=== PATIENT | male | born 1980 | race American Indian/Alaskan Native ===

== ENCOUNTER 2016-05-18 14:45 | Emergency (ER) | payer SELFPAY ==
--- NOTE | 2016-05-18 17:40 | Emergency Department Report ---
Chief Complaint: Abdominal Pain Stated Complaint: LOWER ABD PAIN Time Seen by Provider: 05/18/16 17:36 - HPI History of Present Illness: Patient reports LLQ pain that started two days ago. Patient denies N/V/D - ROS Review of Systems: all other systems are unremarkable except for documentation in HPI - Exam Vital Signs: Vital Signs 05/18/16 16:03 Temperature 100.3 F H Pulse Rate 102 H Respiratory 16 Rate Blood Pressure 161/107 O2 Sat by Pulse 96 Oximetry Physical Exam: Gen: well developed and nourished, NAD Abd: soft, nondistended, bowel sounds present, LLQ tenderness to palpation, no rebound, rigid or guarding MSE screening note: Focused history and physical exam performed. Due to findings the following was ordered: laboratory studies ordered ED Disposition for MSE Condition: Stable
[2016-05-18 18:30] LABS: Basophils % (Auto) 0.3 % (0.0-1.8); Eosinophils % (Auto) 0.3 % (0.0-4.3); Hematocrit 51.3 % (35.5-45.6); Hemoglobin 17.3 gm/dl (11.8-15.2); Mean Corpuscular HGB Conc 34 % (32-34); Mean Corpuscular Hemoglobin 31 pg (28-32); Mean Corpuscular Volume 93 fl (84-94); Platelet Count 194 K/mm3 (140-440); Red Blood Count 5.55 M/mm3 (3.65-5.03); Red Cell Distribution Width 13.4 % (13.2-15.2); White Blood Count 13.1 K/mm3 (4.5-11.0)
[2016-05-18 18:48] LABS: Alanine Aminotransferase 44 units/L (7-56); Albumin 4.3 g/dL (3.9-5); Alkaline Phosphatase 67 units/L (35-129); Bilirubin,Total 1.1 mg/dL (0.1-1.2); Blood Urea Nitrogen 10 mg/dL (9-20); Calcium 9.1 mg/dL (8.4-10.2); Carbon Dioxide 27 mmol/L (22-30); Chloride 95.6 mmol/L (98-107); Glucose 101 mg/dL (75-100); Lipase 34 units/L (13-60); Potassium 3.7 mmol/L (3.6-5.0); Sodium 137 mmol/L (137-145); Total Protein 8.4 g/dL (6.3-8.2)
[2016-05-18 18:50] LABS: Anion Gap 18 mmol/L
[2016-05-18 22:23] LABS: Bilirubin,Urine NEG (Negative); Blood,Urine MOD (Negative); Ketones,Urine 80 mg/dL (Negative); Leukocyte Esterase,Urine NEG (Negative); Mucus,Urine 3+ /HPF; Nitrite,Urine NEG (Negative)
--- NOTE | 2016-05-19 00:07 | Emergency Department Report ---
HPI - General Chief Complaint: Abdominal Pain Time Seen by Provider: 05/18/16 23:31 - HPI HPI: 36-year-old Afro-[place] male presents to the emergency department with a three -day history of lower left quadrant abdominal pain. He denies any nausea, vomiting, dysuria or discharge. Patient has been doing a detox cleanse the last week that has caused him to have a lot of diarrhea. He denies any hematuria or bright red blood per rectum. He has not taken anything for symptoms prior to presentation. No recent travel or sick contacts at home. He denies any past medical history. He says it is a gas pain sensation. It was really bad last night and kept her from getting any good rest. However he eventually fell asleep and woke up with improved pain currently at a 4 out of 10 in intensity. ED Past Medical Hx - Past Medical History Previous Medical History?: No - Surgical History Past Surgical History?: No - Social History Smoking Status: Current Every Day Smoker Substance Use Type: Alcohol - Medications Home Medications: Home Medications Medication Instructions Recorded Confirmed Last Taken Type Ciprofloxacin HCl [Ciprofloxacin 500 mg PO Q12HR #14 tab 05/19/16 Unknown Rx TAB] ED Review of Systems ROS: Stated complaint: LOWER ABD PAIN Other details as noted in HPI Comment: All other systems reviewed and negative Constitutional: denies: chills, fever Eyes: denies: eye pain, eye discharge, vision change ENT: denies: ear pain, throat pain Respiratory: denies: cough, shortness of breath, wheezing Cardiovascular: denies: chest pain, palpitations Gastrointestinal: abdominal pain. denies: nausea, vomiting Genitourinary: denies: urgency, dysuria Musculoskeletal: denies: back pain, joint swelling, arthralgia Skin: denies: rash, lesions Neurological: denies: headache, weakness, paresthesias Physical Exam - Physical Exam Vital Signs: Vital Signs 05/18/16 05/18/16 16:03 23:12 Temperature 100.3 F H 98.9 F Pulse Rate 102 H 103 H Respiratory 16 18 Rate Blood Pressure 161/107 160/111 O2 Sat by Pulse 96 99 Oximetry Physical Exam: GENERAL: The patient is well-developed well-nourished. Patient does not appear in any acute distress. HEENT: Normocephalic. Atraumatic. Extraocular motions are intact. Patient has moist mucous membranes. NECK: Supple. Trachea is midline. CHEST/LUNGS: Clear to auscultation. There is no respiratory distress noted. HEART/CARDIOVASCULAR: Regular. There is no tachycardia. There is no gallop rub or murmur. ABDOMEN: Abdomen is soft. Mild tenderness to palpation of the left lower quadrant. Patient hyperactive normal bowel sounds. There is no abdominal distention. SKIN: There is no rash. There is no edema. There is no diaphoresis. NEURO: The patient is awake, alert, and oriented. The patient is cooperative. The patient has no focal neurologic deficits. The patient has normal speech. MUSCULOSKELETAL: There is no tenderness or deformity. There is no limitation range of motion. There is no evidence of acute injury. ED Course Vital Signs 05/18/16 05/18/16 16:03 23:12 Temperature 100.3 F H 98.9 F Pulse Rate 102 H 103 H Respiratory 16 18 Rate Blood Pressure 161/107 160/111 O2 Sat by Pulse 96 99 Oximetry ED Medical Decision Making - Lab Data Result diagrams: 05/18/16 18:01 05/18/16 18:01 - Radiology Data Radiology results: report reviewed CT of the abdomen and pelvis without contrast shows evidence of inflammatory change in the descending colon with some bowel wall thickening and pericolonic fat stranding. This could represent short segment colitis versus diverticulitis. No complications at this time. No evidence of intestinal or urinary tract obstruction. - Medical Decision Making 36-year-old male presents to the emergency department with left lower quadrant abdominal pain for the past 2 days. The patient has been doing a detox past week in which he drinks something more takes medication to make himself have loose bowel movements. On physical exam the patient has some hyperactive bowel sounds and mild left lower quadrant tenderness to palpation but he does not appear to have a surgical or rigid abdomen. Patient's labs are mostly unremarkable except for a mild leukocytosis of 13,000 and signs of dehydration with 80 ketones in the urine. Patient does not have any nausea and vomiting and is able to increase oral rehydration. However the patient was given a liter of IV fluid resuscitation. A CT of the abdomen and pelvis was done that showed some descending colon inflammation and pericolonic fat stranding that could be a short segment colitis versus diverticulitis. Patient's urinalysis also showed some hematuria with 29 red blood cells. With hematuria and the location of the patient's discomfort, renal colic from a kidney stone could also be in the differential but no current stone was seen. Patient will be treated with some antibiotics and given referrals for primary care and urology. All the labs and imaging results were discussed with the patient and he understands and agrees to the plan. - Differential Diagnosis renal colic, colitis, diverticulitis, malignancy Critical Care Time: No Critical care attestation.: If time is entered above; I have spent that time in minutes in the direct care of this critically ill patient, excluding procedure time. ED Disposition Clinical Impression: Colitis, Renal colic on left side Abdominal pain Qualifiers: Abdominal location: left lower quadrant Qualified Code(s): R10.32 - Left lower quadrant pain Hypertension Qualifiers: Hypertension type: essential hypertension Qualified Code(s): I10 - Essential ( primary) hypertension Disposition: DISCHARGED TO HOME OR SELFCARE Is pt being admited?: No Does the pt Need Aspirin: No Condition: Stable Instructions: Hypertension (ED), Renal Colic (ED), Abdominal Pain (ED) Additional Instructions: Please follow up with one of the primary care doctor referrals that you have been given. I have also given you a referral for a local urologist, Dr. Singh , in case you would like to follow-up regarding the blood in your urine. Return to the emergency department with any worsening of your symptoms or any acute distress. Please try and stay away from any of the untested diet and/or detox plans. Prescriptions: Ciprofloxacin HCl [Ciprofloxacin TAB] 500 mg PO Q12HR #14 tab Referrals: SANTY MOREL MD [Primary Care Provider] - 3-5 Days MONICA GONZALES MD [Staff Physician] - 3-5 Days WILSON SINGH MD [Staff Physician] - 3-5 Days [facility] [Outside] - 3-5 Days Time of Disposition: 01:17
[2016-05-19] MEDS ORDERED: NACL 0.9% 1000 ML 1,000 ML IV ONE (00:08)
[2016-05-19] MEDS ORDERED: NORMODYNE IV ONE (00:08)
--- NOTE | 2016-05-19 00:40 | Cat Scan Report ---
FINAL REPORT PROCEDURE: CT ABDOMEN PELVIS WO CON TECHNIQUE: Computerized axial tomography of the abdomen and pelvis was performed without intravenous contrast. This study is performed without intravascular contrast material and its sensitivity for abdominal and pelvic pathology, including neoplasms, inflammation, abscess, free fluid, thrombosis, arterial dissection and infarction, is reduced compared with a contrast enhanced study. HISTORY: Left flank pain, hematuria COMPARISON: No prior studies are available for comparison. FINDINGS: Visualized lower thorax: No significant abnormality. Liver: Normal size and attenuation. Spleen: Normal size and attenuation. Gallbladder and biliary system: Normal. Pancreas: Normal. Adrenals: Normal. Kidneys: Normal. GI tract: The stomach is normal. The small bowel has a normal caliber. No obstruction, ileus or enteritis. Cecum and appendix region appear normal. There is moderate diverticular change throughout colon. There is some bowel wall thickening some pericolonic fat stranding identified in the descending colon region. A area of short segment colitis or diverticulitis is suspected this region. No complication at this time.. Lymph nodes and mesentery: Normal. Vasculature: Normal. Bladder: Normal. Reproductive organs: Normal. Peritoneum: No free fluid. Musculoskeletal structures: No significant abnormality. Other: None. IMPRESSION: There is evidence of inflammatory change in the descending colon with some bowel wall thickening and pericolonic fat stranding, short segment colitis versus diverticulitis in this region is suspected. No complication at this time. No evidence of intestinal or urinary tract obstruction. .
[2016-05-19 00:46] VITALS: BP 155/92
== END 2016-05-19 02:55 | disposition home or self-care (01) ==
LOC: ED 14:45
DX: K52.9 Noninfective gastroenteritis and colitis, unspecified (principal); N23 Unspecified renal colic; I10 Essential (primary) hypertension; F17.200 Nicotine dependence, unspecified, uncomplicated
CPT/HCPCS: 36415; 74176; 80053; 81001; 83690; 85025; 96360; 99284; J7030

== ENCOUNTER 2019-07-01 10:39 | Emergency (ER) | payer SELFPAY ==
[2019-07-01 11:20] VITALS: BP 152/101
--- NOTE | 2019-07-01 11:21 | Emergency Department Report ---
Chief Complaint: Urogenital-Male Stated Complaint: DISCHARGE Time Seen by Provider: 07/01/19 11:16 - HPI History of Present Illness: pt is a 39 yo male who presents to the ED with c/o penile discharge that began a couple of days ago. he denies any dysuria, abd pain, fever, chills, n/v/d, pain or edema in the testicles. Initial vitals with elevated blood pressure which improved upon repeat, will have patient follow-up with a primary care physician regarding his blood pressure, discussed to keep a blood pressure log, eat a low-sodium diet, increase water intake, incorporate daily exercise, and follow-up with your primary care doctor Patient is not having any symptoms related to his blood pressure, patient does not report any chest pain, shortness of breath, headache, vision changes, numbness, weakness Patient is presenting with a nonmedical emergency at this time, medical screening examination performed and there is no threat to life or limb at this time Discussed with patient to be seen by the health department or clinic for full STD panel and treatment Discussed strict return precautions with patient Patient given list of several community resources - Exam Vital Signs: Vital Signs 07/01/19 10:57 Temperature 97.9 F Pulse Rate 81 Respiratory 16 Rate Blood Pressure 170/120 O2 Sat by Pulse 98 Oximetry MSE screening note: Focused history and physical exam performed. ED Medical Decision Making - Lab Data Vital Signs 07/01/19 07/01/19 10:57 11:18 Temperature 97.9 F Pulse Rate 81 74 Respiratory 16 16 Rate Blood Pressure 170/120 Blood Pressure 152/101 [Right] O2 Sat by Pulse 98 100 Oximetry ED Disposition for MSE Clinical Impression: Concern about STD in male without diagnosis, Elevated blood pressure reading Disposition: Z-07 MED SCREENING EXAM-LEFT Is pt being admited?: No Does the pt Need Aspirin: No Condition: Stable Instructions: Sexually Transmitted Diseases (ED), Safe Sex (ED) Additional Instructions: please follow up with the health department or a clinic for a full STD panel. do not have sexual intercourse until you have been tested and treated. please have any partner tested and treated. return to the emergency room for any new or worsening symptoms. eat a low sodium diet. increase your water intake. incorporate daily exercise. follow up with a primary care doctor regarding your blood pressure. return to the emergency room for any new or worsening symptoms. Referrals: [facility] [Outside] - 2-[address] [facility] [Outside] - 2-3 Days CLARK ENRIQUEZ MD [Staff Physician] - 2-3 Days [facility] [Outside] - 2-3 Days Time of Disposition: 11:16 Print Language: ESTONIAN
== END 2019-07-01 11:44 | disposition left against medical advice (07) ==
LOC: ED 10:39
DX: R36.9 Urethral discharge, unspecified (principal); R03.0 Elevated blood-pressure reading, without diagnosis of hypertension
CPT/HCPCS: 99281